=== PATIENT | female | born 1960 | race Caucasian/White ===

== ENCOUNTER 2019-01-07 12:39 | Emergency (ER) | payer BC ==
[~2019-01-07] VITALS: Ht 172.7 cm; Wt 86.2 kg
--- NOTE | 2019-01-07 13:50 | NUR ---
Patient discharged to home in stable conditon. Written and verbal after care instructions given. Patient verbalizes understanding of instructions.
== END 2019-01-07 13:51 | disposition home or self-care (01) ==
LOC: ER 12:39
DX: M25.532 Pain in left wrist (principal); M25.562 Pain in left knee; M25.561 Pain in right knee; Z88.5 Allergy status to narcotic agent; W01.0XXA Fall on same level from slipping, tripping and stumbling without subsequent striking against object, initial encounter; Y93.89 Activity, other specified; Y92.89 Other specified places as the place of occurrence of the external cause; Y99.8 Other external cause status
CPT/HCPCS: 73130; A4663

== ENCOUNTER 2019-02-13 07:54 | Emergency (ER) | payer BC ==
[~2019-02-13] VITALS: Ht 167.6 cm; Wt 88.5 kg
[2019-02-13] MEDS ORDERED: TETRACAINE HCL 0.5% OPHT DROP 2 ML BOTTLE ONE (08:29)
[2019-02-13] MEDS ORDERED: FLUORESCEIN SODIUM 1 MG STRIP ONE (08:29)
[2019-02-13] MEDS ORDERED: FLUORESCEIN SODIUM 1 MG STRIP OP ONE (08:30)
[2019-02-13] MEDS ORDERED: TETRACAINE HCL 0.5% OPHT DROP 2 ML BOTTLE OP ONE (08:30)
--- NOTE | 2019-02-13 08:55 | NUR ---
PATIENT IS PAIN FREE AT THIS TIME. Patient discharged to home in stable conditon & brisk steady gait. Written and verbal after care instructions given to patient. Patient verbalizes understanding & compliance of instructions.
== END 2019-02-13 08:55 | disposition home or self-care (01) ==
LOC: ER 07:54
DX: S05.01XA Injury of conjunctiva and corneal abrasion without foreign body, right eye, initial encounter (principal); Z88.5 Allergy status to narcotic agent; X58.XXXA Exposure to other specified factors, initial encounter; Y93.89 Activity, other specified; Y92.89 Other specified places as the place of occurrence of the external cause; Y99.8 Other external cause status
CPT/HCPCS: A4663